=== PATIENT | female | born 1970 | race Asian ===

== ENCOUNTER 2016-05-31 17:19 | Emergency (ER) | payer MEDICAID, OTHER ==
[~2016-05-31] VITALS: Ht 154.9 cm; Wt 66.7 kg
[2016-05-31 17:28] VITALS: BP 168/114; PULSE 94; RESP 16; TEMP 98; O2SAT 100
--- NOTE | 2016-05-31 18:13 | PD ---
HPI Chief Complaint: Laceration/Skin Injury Time Seen by Provider: 18:13 Travel History International Travel<30 days: No Contact w/Intl Traveler<30days: No Traveled to known affect area: No History of Present Illness HPI 46-year-old right-hand dominant female presents the ED for evaluation of laceration of the left index finger. Sustained approximately 45 minutes ago while the patient was slicing vegetables. Patient endorses 2/10 pain at rest. Pain increases with attempt at range of motion or touching the finger. She denies numbness, tingling, weakness or limitations to range of motion of the finger. She denies previous injury to the same digit. No treatment At home. Patient states her tetanus immunization is up-to-date. Denies chronic health problems, takes no daily medications. NKDA. PFSH Past Medical History Medical History: Denies Significant Hx Tetanus Vaccination: < 5 Years Influenza Vaccination: No ?: Not LMP: 2 weeks Past Surgical History Section: Yes Social History Alcohol Use: No Tobacco Use: No Substance Use: No Allergies-Medications (Allergen,Severity, Reaction): Coded Allergies: No Known Allergies (Unverified , 05/31/16) Reported Meds & Prescriptions Reported Meds & Active Scripts Active No Active Prescriptions or Reported Medications Review of Systems Except as stated in HPI: all other systems reviewed are Neg Physical Exam Narrative GENERAL: Well-nourished, well-developed female in no acute distress. SKIN: Focused skin assessment warm/dry. There is a partial nail laceration of the distal 1/3 of the radial aspect of the left index finger. No laceration of the nail bed HEAD: Normocephalic. EYES: No scleral icterus. No injection or drainage. NECK: Supple, trachea midline. No JVD or lymphadenopathy. CARDIOVASCULAR: Regular rate and rhythm without murmurs, gallops, or rubs. RESPIRATORY: Breath sounds equal bilaterally. No accessory muscle use. GASTROINTESTINAL: Abdomen soft, non-tender, nondistended. MUSCULOSKELETAL: No cyanosis, or edema. Focused left upper extremity exam: 2+ radial pulse. Patient retains full, active, painless range of motion of the digits of the left hand. Sensation intact to light touch distally and cap refill less than 2 seconds on each digit. BACK: Nontender without obvious deformity. No CVA tenderness. Data Data Last Documented VS Vital Signs Date Time Temp Pulse Resp B/P Pulse Ox O2 Delivery O2 Flow Rate FiO2 05/31/16 18:22 177/101 05/31/16 17:28 98.0 94 16 100 Orders Lidocaine 1% Inj (50 Ml) (Xylocaine 1% I (05/31/16 18:30) Ibuprofen (Motrin) (05/31/16 18:30) MDM Medical Decision Making Medical Screen Exam Complete: Yes Emergency Medical Condition: Yes Differential Diagnosis Laceration versus abrasion versus nail avulsion versus other Narrative Course 46-year-old right-hand dominant female presents the ED for evaluation of laceration of the left index finger. Sustained approximately 45 minutes ago while the patient was slicing vegetables. Patient endorses 2/10 pain at rest. Pain increases with attempt at range of motion or touching the finger. She denies numbness, tingling, weakness or limitations to range of motion of the finger. She denies previous injury to the same digit. No treatment At home. Patient states her tetanus immunization is up-to-date. Vitals reviewed. Patient is hypertensive on presentation. She states that she normally runs in the "high normal range" with her blood pressure. She does not take any medications to treat hypertension. Physical exam reveals an female in no acute distress. There is a partial nail laceration of the distal 1/3 of the radial aspect of the left index finger. No laceration of the nail bed. 2+ radial pulse. Patient retains full, active, painless range of motion of the digits of the left hand. Sensation intact to light touch distally and cap refill less than 2 seconds on each digit. Digital block was performed and the wound was evaluated. No injury to the nail bed. There was mild bleeding that required application of wound seal. Sterile dressing was applied. Patient was advised to keep the wound clean, dry, covered, trim the nail as it grows, follow -up with the primary care provider. She is also instructed to keep a journal of her blood pressures to present to her PCP at the next visit. She indicated understanding of instructions and was amenable to plan of care. This patient is stable and discharged home. Procedures Procedure Narrative LACERATION LOCATION: distal tip of the nail of the left index finger LENGTH: 0.5 cm NUMBER OF STITCHES/NIYAH: 0 REPAIR: The area of the laceration was prepped with Betadine and sterilely draped. A digital block was performed with 1% lidocaine. Good anesthesia was obtained. The wound was copiously irrigated with normal saline and explored without evidence of injury to the nail bed, foreign body, tendon injury or neurovascular injury. A small amount of Wound Seal was applied. A sterile dressing was applied. The patient was advised to keep the dressing clean and dry. Patient tolerated the procedure well. Diagnosis Primary Impression: Laceration of left index finger Referrals: Primary Care Physician Patient Instructions: Acute Wound Care (ED), General Instructions Additional Instructions: Rest, hydrate. Do not change the dressing for 24 hours. You may bathe normally. Do not submerge the wound. After bathing pat of wound dry. Allow the wound to air dry for 10-15 minutes. Apply a thin layer of antibiotic ointment and a clean, dry dressing. Keep the wound clean, dry and covered. Utilize [id number] pain medications, as described on the label, as needed. Keep a diary of your blood pressures at different times of the day as discussed. Present this to your primary care provider next visit. Follow-up with your primary care provider next week. Return to the ED for any urgent or emergent medical condition. Scripts No Active Prescriptions or Reported Meds Disposition: 01 DISCHARGE HOME Condition: Stable Pilar Dang May 31, 2016 18:13
[2016-05-31 18:22] VITALS: BP 177/101
[2016-05-31] MEDS ORDERED: IBUPROFEN 600 MG TAB PO ONE (18:30)
[2016-05-31] MEDS ORDERED: LIDOCAINE HCL 1% 50 ML VIAL INFIL ONE (18:30)
== END 2016-05-31 19:24 | disposition home or self-care (01) ==
LOC: PHEFT 17:19
DX: S61.311A Laceration without foreign body of left index finger with damage to nail, initial encounter (principal); W26.0XXA Contact with knife, initial encounter; Y93.G1 Activity, food preparation and clean up; Y92.9 Unspecified place or not applicable; Y99.9 Unspecified external cause status
CPT/HCPCS: 12001